=== PATIENT | female | born 1990 | race Caucasian/White ===

== ENCOUNTER 2017-03-05 07:20 | Outpatient (CLI) | payer BC, OTHER ==
[~2017-03-05] VITALS: Ht 162.6 cm; Wt 90.0 kg
[~2017-03-05 07:20] MED LIST: AUGMENTIN 875 M1 TAB PO; BCP TD; LORTAB 5/500 501 TAB PO
[2017-03-05 07:34] VITALS: BP 117/62; PULSE 88; TEMP 98.6
[2017-03-05] MEDS ORDERED: CLARITIN 1010 MG/TAB PO (07:41)
[2017-03-05] MEDS ORDERED: PRENATAL PO (07:41)
[2017-03-05 08:40] VITALS: BP 112/64; PULSE 86
== END 2017-03-05 08:50 | disposition home or self-care (01) ==
LOC: LDRO 07:20
DX: O99.89 Other specified diseases and conditions complicating pregnancy, childbirth and the puerperium (principal); R25.2 Cramp and spasm; Z3A.28 28 weeks gestation of pregnancy

== ENCOUNTER 2017-04-25 10:36 | Outpatient (CLI) | payer OTHER ==
[~2017-04-25] VITALS: Ht 162.6 cm; Wt 94.8 kg
[~2017-04-25 10:36] MED LIST changes: +CLARITIN 1010 MG/TAB PO; +PRENATAL PO
== END 2017-04-25 11:33 | disposition home or self-care (01) ==
LOC: LDRO 10:36
DX: O36.8130 Decreased fetal movements, third trimester, not applicable or unspecified (principal); Z3A.34 34 weeks gestation of pregnancy

== ENCOUNTER 2017-05-24 12:13 | Inpatient (IN) | payer OTHER ==
[~2017-05-24] VITALS: Ht 162.6 cm; Wt 97.7 kg
[2017-05-30] VITALS (19 sets, daily range): BP systolic 97–133; BP diastolic 52–97; PULSE 72–104; TEMP 97.6–98.6
[2017-05-30 06:13] LABS: BASO % 0.3 % (0.0-2.0); EOS # 0.1 (0.0-0.7); EOS % 1.1 % (0-4.0); GRAN # 6.7 (1.4-6.5); GRAN % 69.7 % (42.2-75.2); HEMATOCRIT 40.3 % (37.0-47.0); LYMPH # 1.9 (1.2-3.4); LYMPH % 20.1 % (20.0-51.0); MEAN CELL VOLUME 91 fl (80.0-100.0); MEAN CORPUSCULAR HEMOGLOBIN 32 pg (27.0-31.0); MEAN CORPUSCULAR HGB CONC 35 g/dl (33.0-37.0); MEAN PLATELET VOLUME 12.2 fl (7.4-10.4); MONO # 0.8 (0.1-0.6); MONO % 8.3 % (1.7-9.3); PLATELET COUNT 189 K/mm3 (130-400); RED BLOOD COUNT 4.41 M/mm3 (4.10-5.30); WHITE BLOOD COUNT 9.6 K/mm3 (4.8-10.8)
[2017-05-31 03:20] VITALS: BP 109/64; PULSE 79; TEMP 98.5
[2017-05-31 06:49] VITALS: BP 122/80; PULSE 86; TEMP 97.5
[2017-05-31 08:00] LABS: BASO % 0.3 % (0.0-2.0); EOS # 0.1 (0.0-0.7); EOS % 0.7 % (0-4.0); GRAN # 8.3 (1.4-6.5); HEMOGLOBIN 12.1 g/dl (12.5-16.0); LYMPH # 1.5 (1.2-3.4); LYMPH % 14.4 % (20.0-51.0); MEAN CELL VOLUME 94 fl (80.0-100.0); MEAN CORPUSCULAR HEMOGLOBIN 32 pg (27.0-31.0); MEAN CORPUSCULAR HGB CONC 34 g/dl (33.0-37.0); MEAN PLATELET VOLUME 11.2 fl (7.4-10.4); MONO # 0.5 (0.1-0.6); MONO % 5.1 % (1.7-9.3); PLATELET COUNT 160 K/mm3 (130-400); RED BLOOD COUNT 3.82 M/mm3 (4.10-5.30); WHITE BLOOD COUNT 10.6 K/mm3 (4.8-10.8)
[2017-05-31 08:02] LABS: HEMATOCRIT 35.7 % (37.0-47.0)
[2017-05-31] MEDS ORDERED: IBU600 MG PO (09:04)
[2017-05-31] MEDS ORDERED: PERCOCET 325 MG1 TA2 PO (09:05)
== END 2017-05-31 11:15 | disposition home or self-care (01) | DRG 765 ==
LOC: OB 05-30 05:21
PROVIDERS: Obstetrics & Gynecology
PROC: 10D00Z1 Extraction of Products of Conception, Low, Open Approach (ICD-10-PCS; principal; 2017-05-30)
DX: O40.3XX0 Polyhydramnios, third trimester, not applicable or unspecified (principal); O36.0130 Maternal care for anti-D [Rh] antibodies, third trimester, not applicable or unspecified; O99.334 Smoking (tobacco) complicating childbirth; F17.210 Nicotine dependence, cigarettes, uncomplicated; O24.420 Gestational diabetes mellitus in childbirth, diet controlled; Z37.0 Single live birth
CPT/HCPCS: J0690; J1885; J2270; J2370; J2405; J2590; J2704; J3010; J7120